=== PATIENT | female | born 1960 | race Caucasian/White ===

== ENCOUNTER 2018-07-06 13:08 | Emergency (ER) | payer BC ==
[2018-07-06] MEDS ORDERED: Acetaminophen 500 MG TAB ONE (13:26)
--- NOTE | 2018-07-06 14:03 | CT ---
CT HEAD; Date: 07/06/18 COMPARISON: None. HISTORY: Fall, trauma, pain. TECHNIQUE: Axial CT imaging obtained at 5 mm intervals from vertex through skull base without contrast. Coronal and sagittal reformatted imaging obtained. FINDINGS: Postoperative clips noted anterior to the external auditory canal on the right. Imaged paranasal sinuses/mastoid air cells appear well aerated. There is no displaced calvarial fracture. No intracranial hemorrhage, midline shift, mass effect, or ventricular enlargement. IMPRESSION: No intracranial hemorrhage or displaced calvarial fracture. POS: [id number]
== END 2018-07-06 13:58 | disposition home or self-care (01) ==
LOC: SCSER 13:08
DX: S06.9X1A Unspecified intracranial injury with loss of consciousness of 30 minutes or less, initial encounter (principal); S00.03XA Contusion of scalp, initial encounter; S60.051A Contusion of right little finger without damage to nail, initial encounter; W17.89XA Other fall from one level to another, initial encounter
CPT/HCPCS: 70450